=== PATIENT | male | born 1965 | race African-American/Black ===

== ENCOUNTER 2023-09-04 09:32 | Emergency (ER) | payer BC ==
[2023-09-04 09:52] VITALS: BMI 32.6
[2023-09-04] MEDS ORDERED: KETOROLAC TROMETHAMINE 15 MG/ML VIAL ONE (10:32)
[2023-09-04] MEDS ORDERED: LIDOCAINE 4% PATCH TP ONE (10:33)
[2023-09-04] MEDS: KETOROLAC TROMETHAMINE 15 MG/ML VIAL IVPUSH ONE (10:39)
[2023-09-04] MEDS: LIDOCAINE 4% PATCH TP ONE (10:39)
[2023-09-04 10:44] LABS: BASO % 0.6 % (0-2.0); EOS % 1.8 % (0-4.5); HEMATOCRIT 42.2 % (35.4-49); HEMOGLOBIN 14.6 GM/dL (11.7-16.9); LYMPH % 26.9 % (8-40); MCH 31.3 pg (25.7-33.7); MCHC 34.5 g/dl (32.0-35.9); MEAN CELL VOLUME 90.7 fl (80-96); MEAN PLT VOLUME 8.5 fl (7.5-11.1); MONO % 11.1 % (3.8-10.2); NEUT % 59.6 % (42.8-82.8); PLATELET COUNT 199 10^3/uL (134-434); RBC 4.65 M/mm3 (4.00-5.60); RDW 13.5 % (11.9-15.9); WHITE BLOOD COUNT 4.5 K/mm3 (4.0-10.0)
[2023-09-04 10:55] LABS: POTASSIUM 4.1 mmol/L (3.5-5.1)
[2023-09-04 10:58] LABS: CALCIUM 9.3 mg/dL (8.5-10.1)
[2023-09-04 10:59] LABS: BLOOD UREA NITROGEN 18.1 mg/dL (7-18)
[2023-09-04 11:02] LABS: CREATININE 1.3 mg/dL (0.55-1.3)
[2023-09-04 11:03] LABS: BILIRUBIN,TOTAL 0.9 mg/dL (0.2-1)
[2023-09-04] MEDS ORDERED: ACETAMINOPHEN INJECTION 100 ML IVPB ONE ×2 (11:41→17:35)
[2023-09-04] MEDS: ACETAMINOPHEN 1000 MG/100 ML BAG IVPB ONE ×2 (11:45→17:40)
[2023-09-04] MEDS: SODIUM CHLORIDE 0.9% 500 ML INFUS.BAG IV ONE (13:40)
[2023-09-04 13:51] LABS: PH,URINE 7.5 (5.0-8.0); URINE APPEARANCE CLEAR; URINE BILIRUBIN NEGATIVE (NEGATIVE); URINE COLOR YELLOW; URINE GLUCOSE (UA) NEGATIVE (NEGATIVE); URINE KETONE TRACE (NEGATIVE); URINE LEUK ESTERASE NEGATIVE (NEGATIVE); URINE NITRITE NEGATIVE (NEGATIVE); URINE PROTEIN TRACE (NEGATIVE)
[2023-09-04 19:00] VITALS: TEMP 97.4
[2023-09-04 19:41] VITALS: BP 151/90; PULSE 82; RESP 18
[2023-09-04] MEDS ORDERED: LIDOCAINE PATCH REMOVAL MC ONE (22:00)
== END 2023-09-04 19:51 | disposition home or self-care (01) ==
LOC: JER 09:32
PROC: 3E033NZ Introduction of Analgesics, Hypnotics, Sedatives into Peripheral Vein, Percutaneous Approach (ICD-10-PCS; principal; 2023-09-04)
PROC: 3E033NZ Introduction of Analgesics, Hypnotics, Sedatives into Peripheral Vein, Percutaneous Approach (ICD-10-PCS; 2023-09-04)
PROC: 3E0333Z Introduction of Anti-inflammatory into Peripheral Vein, Percutaneous Approach (ICD-10-PCS; 2023-09-04)
DX: M54.50 Low back pain, unspecified (principal); R10.31 Right lower quadrant pain; R20.0 Anesthesia of skin
CPT/HCPCS: 36415; 72131-TC; 72170-TC-FY; 80053; 81003; 83605; 85025; 87086; 99285-25; J0131